=== PATIENT | male | born 1985 | race Caucasian/White ===

== ENCOUNTER → 2019-04-20 | Outpatient (REF) | payer BC ==
[2019-04-20 13:15] LABS: BASO # 0.1 10^3/uL (0.0-0.2); EOS # 0.5 10^3/uL (0.0-0.5); EOS % 5.5 % (0.0-3.0); HEMOGLOBIN 14.1 g/dl (13.5-17.5); LYMPH # 2.7 10^3/uL (1.5-5.0); LYMPH % 32.7 % (24.0-44.0); MEAN CORPUSCULAR HEMOGLOBIN 30.1 pg (27.0-33.0); MEAN CORPUSCULAR HGB CONC 33.6 g/dl (32.0-36.5); MEAN CORPUSCULAR VOLUME 89.7 fl (80.0-96.0); MONO # 0.7 10^3/uL (0.0-0.8); MONO % 8.8 % (0.0-5.0); NEUTROPHILS # 4.3 10^3/uL (1.5-8.5); NEUTROPHILS % 51.8 % (36.0-66.0); PLATELET COUNT, AUTOMATED 275 10^3/uL (150-450); RED BLOOD COUNT 4.68 10^6/uL (4.30-6.10); WHITE BLOOD COUNT 8.2 10^3/uL (4.0-10.0)
[2019-04-20 13:36] LABS: ALBUMIN 4.2 GM/DL (3.2-5.2); ALT/SGPT 53 U/L (12-78); BILIRUBIN,TOTAL 0.4 MG/DL (0.2-1.0); BLOOD UREA NITROGEN 19 MG/DL (7-18); CALCIUM LEVEL 9.8 MG/DL (8.5-10.1); CARBON DIOXIDE LEVEL 28 MEQ/L (21-32); CHLORIDE LEVEL 107 MEQ/L (98-107); CHOLESTEROL LEVEL 172 MG/DL (<200); CREATININE FOR GFR 0.87 MG/DL (0.70-1.30); FREE T4 1.27 NG/DL (0.76-1.46); GLOMERULAR FILTRATION RATE > 60.0 (>60); GLUCOSE, FASTING 86 MG/DL (70-100); HDL CHOLESTEROL 43 MG/DL (>40); LDL CHOLESTEROL 107 MG/DL (<100); NON-HDL-C 129 MG/DL; POTASSIUM SERUM 3.9 MEQ/L (3.5-5.1); SODIUM LEVEL 139 MEQ/L (136-145); TOTAL 25(OH) VITAMIN D 17.7 NG/ML (30.0-100.0); TOTAL PROTEIN 7.3 GM/DL (6.4-8.2); TRIGLYCERIDES LEVEL 109 MG/DL (<150)
== END ==
LOC: M LAB REF 12:10
PROVIDERS: ATTEND Physician Assistant
DX: Z68.42 Body mass index [BMI] 45.0-49.9, adult (principal); E66.01 Morbid (severe) obesity due to excess calories; J30.9 Allergic rhinitis, unspecified; E78.5 Hyperlipidemia, unspecified; F41.8 Other specified anxiety disorders

== ENCOUNTER → 2019-07-21 | Outpatient (CLI) | payer BC ==
--- NOTE | 2019-07-22 00:47 | REP ---
MRI OF THE LEFT ANKLE: TECHNIQUE: Sagittal proton density, STIR, axial proton density fat-sat, T1, coronal proton density, STIR. The Achilles, anterior tibial, posterior tibial, flexor hallucis longus, flexor digitorum longus, and peroneal tendons are all intact without significant tenosynovitis. The anterior and posterior talofibular, calcaneofibular, and deltoid ligaments are intact. Plantar fascia demonstrates no abnormal signal. Plantar tendon is intact. There is collapse of the navicular bone with diffuse marrow edema. Extensive cystic changes are seen in the lateral margin of the navicular bone. I suspect this represents osteonecrosis. There are mild arthritic changes of the adjacent intertarsal joints with areas of mild subchondral marrow edema. No other abnormal osseous signal is seen. There is a mild amount of scattered joint fluid. IMPRESSION: Moderate collapse of the navicular bone, with mild dorsal displacement with respect to the talus. Diffuse marrow edema. Extensive cystic changes in the lateral aspect of the navicular. 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 There are mild arthritic changes of the adjacent intertarsal joints with mild subchondral marrow edema. No tendon or ligament tear. Electronically Signed by Reno Shields MD 07/23/2019 09:19 A
--- NOTE | 2019-07-23 07:36 | REP ---
Clinical: Acquired clubfoot. Technique: Axial noncontrast images through the ankle with coronal and sagittal re-formations. Findings: The lateral third of the navicular bone demonstrates small central cystic changes along with surrounding elements of sclerosis and small cortical breaks suggesting element of chronic osteonecrosis. There is mild associated surrounding swelling and infiltration as well as mild associated joint space narrowing suggesting subsequent arthritic changes. Axial images demonstrate the AP talocalcaneal angle to be approximately 21 degrees. Remainder of the examination appears relatively normal. Impression: 1. findings suggesting osteonecrosis along the lateral third of the navicular bone with subsequent small fracture line and surrounding inflammatory change as well as mild chronic associated arthritic change. 2. The AP talocalcaneal angle measures approximately 21 degrees. Electronically Signed by Ken Blancas MD 07/23/2019 07:28 A
--- NOTE | 2019-07-23 08:28 | REP ---
Clinical: Acquired clubfoot. Left foot pain. Technique: Axial noncontrast images through the left foot with coronal and sagittal re-formations. Findings: The lateral third of the navicular bone demonstrates small central cystic changes along with surrounding sclerosis and small cortical breaks suggesting osteonecrosis and possible subsequent fracture. The associated navicular joint spaces demonstrate minimal degenerative narrowing. The remainder of the osseous structures and soft tissues of the foot appear essentially normal and age-appropriate. No further osteoarthritic degenerative changes are appreciated. No evidence for acute injury. Axial images demonstrate the AP talocalcaneal angle to be approximately 21 degrees. Impression: 1. Findings suggesting osteonecrosis along the lateral third of the navicular bone with subsequent small fracture and mild adjacent periarticular arthritic changes 2. The AP talocalcaneal angle measures approximately 21 degrees. Electronically Signed by Ken Blancas MD 07/23/2019 08:19 A
== END ==
LOC: M RAD 14:01
PROVIDERS: ATTEND Orthopaedic Surgery
DX: M19.072 Primary osteoarthritis, left ankle and foot (principal); M21.542 Acquired clubfoot, left foot; M25.472 Effusion, left ankle

== ENCOUNTER → 2019-12-03 | Outpatient (REF) | payer BC ==
[2019-12-03 16:50] LABS: BASO # 0.1 10^3/uL (0.0-0.2); BASO % 0.9 % (0.0-1.0); EOS # 0.3 10^3/uL (0.0-0.5); EOS % 3.8 % (0.0-3.0); HEMATOCRIT 43.7 % (42.0-52.0); HEMOGLOBIN 14.1 g/dl (13.5-17.5); LYMPH # 2.1 10^3/uL (1.5-5.0); LYMPH % 32.5 % (24.0-44.0); MEAN CORPUSCULAR HEMOGLOBIN 28.7 pg (27.0-33.0); MEAN CORPUSCULAR HGB CONC 32.3 g/dl (32.0-36.5); MEAN CORPUSCULAR VOLUME 88.8 fl (80.0-96.0); MONO # 0.6 10^3/uL (0.0-0.8); MONO % 8.7 % (0.0-5.0); NEUTROPHILS # 3.5 10^3/uL (1.5-8.5); NEUTROPHILS % 53.9 % (36.0-66.0); PLATELET COUNT, AUTOMATED 264 10^3/uL (150-450); RED BLOOD COUNT 4.92 10^6/uL (4.30-6.10); WHITE BLOOD COUNT 6.5 10^3/uL (4.0-10.0)
[2019-12-03 17:16] LABS: ALBUMIN 4.1 GM/DL (3.2-5.2); ALT/SGPT 36 U/L (12-78); BILIRUBIN,TOTAL 0.5 MG/DL (0.2-1.0); BLOOD UREA NITROGEN 16 MG/DL (7-18); CALCIUM LEVEL 9.3 MG/DL (8.5-10.1); CARBON DIOXIDE LEVEL 25 MEQ/L (21-32); CHLORIDE LEVEL 107 MEQ/L (98-107); CREATININE FOR GFR 1.02 MG/DL (0.70-1.30); GLOMERULAR FILTRATION RATE > 60.0 (>60); GLUCOSE, FASTING 84 MG/DL (70-100); POTASSIUM SERUM 4.5 MEQ/L (3.5-5.1); SODIUM LEVEL 137 MEQ/L (136-145); TOTAL PROTEIN 7.3 GM/DL (6.4-8.2)
== END ==
LOC: M LAB REF 16:20
PROVIDERS: ATTEND Physician Assistant
DX: R03.0 Elevated blood-pressure reading, without diagnosis of hypertension (principal)

== ENCOUNTER 2020-10-17 09:29 | Emergency (ER) | payer BC ==
[~2020-10-17] VITALS: Ht 182.9 cm; Wt 149.4 kg
[2020-10-17] MEDS ORDERED: LISI-898 (09:53)
[2020-10-17] MEDS ORDERED: PARO40TA2 (09:53)
[2020-10-17 11:04] LABS: BASO # 0.1 10^3/uL (0.0-0.2); BASO % 0.9 % (0.0-1.0); EOS # 0.1 10^3/uL (0.0-0.5); EOS % 1.8 % (0.0-3.0); HEMATOCRIT 44.5 % (42.0-52.0); HEMOGLOBIN 14.4 g/dl (13.5-17.5); LYMPH # 1.6 10^3/uL (1.5-5.0); LYMPH % 24.7 % (24.0-44.0); MEAN CORPUSCULAR HEMOGLOBIN 29.1 pg (27.0-33.0); MEAN CORPUSCULAR HGB CONC 32.4 g/dl (32.0-36.5); MEAN CORPUSCULAR VOLUME 90.1 fl (80.0-96.0); MONO # 0.9 10^3/uL (0.0-0.8); MONO % 13.3 % (2.0-8.0); NEUTROPHILS # 3.9 10^3/uL (1.5-8.5); PLATELET COUNT, AUTOMATED 228 10^3/uL (150-450); RED BLOOD COUNT 4.94 10^6/uL (4.30-6.10); WHITE BLOOD COUNT 6.6 10^3/uL (4.0-10.0)
--- NOTE | 2020-10-17 11:16 | REP ---
INDICATION: CHEST PAIN. COMPARISON: No comparison study. TECHNIQUE: Portable upright AP chest radiograph. FINDINGS: The lungs are well inflated and free of infiltrate. Pleural angles are sharp. Heart size is normal. Pulmonary vasculature is not increased. EKG electrodes are seen. IMPRESSION: No active disease. <Electronically signed by Edgar Banks > 10/17/20 [id number]
[2020-10-17] MEDS ORDERED: METAL LOCK LOOP XX ONE (11:31)
[2020-10-17 11:35] LABS: ALBUMIN 3.8 GM/DL (3.2-5.2); ALT/SGPT 35 U/L (12-78); BILIRUBIN,DIRECT 0.1 MG/DL (0.0-0.2); BILIRUBIN,TOTAL 0.5 MG/DL (0.2-1.0); BLOOD UREA NITROGEN 14 MG/DL (7-18); CALCIUM LEVEL 9.1 MG/DL (8.5-10.1); CARBON DIOXIDE LEVEL 29 MEQ/L (21-32); CHLORIDE LEVEL 105 MEQ/L (98-107); CK-MB VALUE MASS < 1.0 NG/ML (<3.6); CPK CREATINE PHOSPHOKINASE 164 U/L (39-308); CREATININE FOR GFR 1.04 MG/DL (0.70-1.30); GLOMERULAR FILTRATION RATE > 60.0 (>60); GLUCOSE, FASTING 87 MG/DL (70-100); MB/CK RELATIVE INDEX 0.61 (< OR =4); POTASSIUM SERUM 3.7 MEQ/L (3.5-5.1); SODIUM LEVEL 138 MEQ/L (136-145); TOTAL PROTEIN 7.9 GM/DL (6.4-8.2); TROPONIN I < 0.02 NG/ML (< 0.10)
--- NOTE | 2020-10-17 14:19 | CR.PDOC ---
General Date of Consultation: Oct 17, 2020 Consultation REASON FOR CONSULTATION/CHIEF COMPLAINT: Monoclonal antibody infusion for COVID- 19 HISTORY OF PRESENT ILLNESS: 35-year-old male with morbid obesity with a BMI of 44.7, hypertension presented to the ED with 4 days history of nasal congestion sore throat cough and upper respiratory symptoms. He had a home Covid positive test 2 days ago. His and 1 son and his mom also positive for Covid. He has been feeling progressively more unwell tired and exhausted so came to the emergency room for evaluation. He denies any shortness of breath any chest pain. Denied any nausea vomiting diarrhea. Denied any fever or chills. Does continue to have upper respiratory symptoms with bothersome cough. He was not hypoxic and his vitals were stable. He was found meet the criteria for mono clonal antibody infusion and did not have any contraindications. Patient consented to get the monoclonal antibody. ALLERGIES: Please see below. HOME MEDICATIONS: Please see below. PAST MEDICAL HISTORY: Hypertension PAST SURGICAL HISTORY: Tonsillectomy and adenoidectomy as a child FAMILY HISTORY: Paternal grandmother with COPD Mother: Sleep apnea SOCIAL HISTORY: Does not smoke, social alcohol use REVIEW OF SYSTEMS: All 10 point review of systems are negative except those mentioned in HPI PHYSICAL EXAMINATION: VITAL SIGNS: Please see below. GENERAL APPEARANCE: Awake alert oriented x3 sitting up in bed in no acute distress HEENT: Normocephalic atraumatic moist mucous membranes anicteric eyes RESPIRATORY: Chest few diffuse crackles good air entry CARDIOVASCULAR: S1-S2 regular no rub murmur gallop ABDOMEN: Soft nontender bowel sounds present EXTREMITIES: No edema NEUROLOGICAL: No neuro deficits LABORATORY DATA: Please see below. ASSESSMENT/PLAN: 35-year-old male presented with COVID-19 infection and admitted for monoclonal antibody infusion COVID-19 infection Plan for monoclonal antibody infusion Hypertension Continue home med Vital Signs/I&O Vital Signs Date Time Temp Pulse Resp B/P (MAP) Pulse Ox O2 Delivery O2 Flow Rate FiO2 10/17/20 13:00 95.5 79 20 131/68 (89) 100 Room Air Laboratory Data Labs 24H Laboratory Tests 2 10/17/20 10:25: Immature Granulocyte % (Auto) 0.3, Neutrophils (%) (Auto) 59.0, Lymphocytes (%) (Auto) 24.7, Monocytes (%) (Auto) 13.3H, Eosinophils (%) (Auto) 1.8, Basophils (%) (Auto) 0.9, Neutrophils # (Auto) 3.9, Lymphocytes # (Auto) 1.6, Monocytes # (Auto) 0.9H, Eosinophils # (Auto) 0.1, Basophils # (Auto) 0.1, Nucleated Red Blood Cells % (auto) 0.0, Anion Gap 4L, Glomerular Filtration Rate > 60.0, Calcium Level 9.1, Total Bilirubin 0.5, Direct Bilirubin 0.1, Aspartate Amino Transf (AST/SGOT) 23, Alanine Aminotransferase (ALT/SGPT) 35, Alkaline Phosphatase 55, Total Creatine Kinase 164, Creatine Kinase MB < 1.0, Creatine Kinase MB Relative Index 0.61, Troponin I < 0.02, Total Protein 7.9, Albumin 3.8, Albumin/Globulin Ratio 0.9 10/17/20 10:54: Influenza A Immunofluorescence NEGATIVE, Influenza B Immunofluorescence NEGATIVE, SARS Antigen (LFIA) POSITIVEH CBC/BMP Laboratory Tests 10/17/20 10:25 Allergies Coded Allergies: No Known Allergies (Unverified , 10/17/20) Home Medications Miscellaneous Medications Lisinopril (Lisinopril) 5 Mg Tablet, (Reported) Paroxetine HCl (Paroxetine HCl) 40 Mg Tablet, (Reported) Macy Allen MD Oct 17, 2020 14:19
--- NOTE | 2020-10-17 17:56 | ECGEPIP ---
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
[2020-10-17 19:01] VITALS: BP 129/68
== END 2020-10-17 19:30 | disposition home or self-care (01) ==
LOC: M ED 09:29
DX: U07.1 COVID-19 (principal); I10 Essential (primary) hypertension; I34.1 Nonrheumatic mitral (valve) prolapse; Z79.899 Other long term (current) drug therapy

== ENCOUNTER 2020-10-17 19:56 | Outpatient (CLI) | payer BC ==
[~2020-10-17] VITALS: Ht 182.9 cm; Wt 157.3 kg
[~2020-10-17 19:56] MED LIST: ALBUTEROL 90 MCG/ACT 8GM HFA INHALER INH PRN; ALBUTEROL SULFATE 2.5 MG/0.5 ML INH NEB SOLN INH PRN; EPINEPHrine INJ 1 MG/ML 1ML AMP IM PRN; LISI-898; NS 1,000 ML IV SCH; PARO40TA2; diphenhydrAMINE 50MG/ML VIAL (J1200) IV PRN; methylPREDNISolone 125MG 2ML VIAL IV PRN
[2020-10-17] MEDS ORDERED: CASIRIVIMAB/IMDEVIMAB 1,200 MG in NS 250 ML IV ONE (20:00)
[2020-10-17 20:04] VITALS: BP 120/67
[2020-10-17 20:51] VITALS: BP 126/72
[2020-10-17 21:31] VITALS: BP 125/72
[2020-10-17 21:57] VITALS: BP 119/73
[2020-10-17 22:30] VITALS: BP 124/66
[2020-10-17 23:06] VITALS: BP 126/72
== END 2020-10-17 23:14 | disposition home or self-care (01) ==
LOC: M OPCLI4 19:56 → M ICU 19:56 → M OPCLI4 23:14
PROVIDERS: ATTEND Internal Medicine Nephrology
DX: U07.1 COVID-19 (principal)

== ENCOUNTER 2020-10-19 10:11 | Emergency (ER) | payer BC ==
[~2020-10-19 10:11] MED LIST changes: -ALBUTEROL 90 MCG/ACT 8GM HFA INHALER INH PRN; -ALBUTEROL SULFATE 2.5 MG/0.5 ML INH NEB SOLN INH PRN; -EPINEPHrine INJ 1 MG/ML 1ML AMP IM PRN; -NS 1,000 ML IV SCH; -diphenhydrAMINE 50MG/ML VIAL (J1200) IV PRN; -methylPREDNISolone 125MG 2ML VIAL IV PRN
[2020-10-19] MEDS ORDERED: KETOROLAC 30 MG/ML 1ML VIAL IV ONE (10:20)
[2020-10-19] MEDS ORDERED: NS 1,000 ML IV ONE ×2 (10:20→10:25)
[2020-10-19 13:00] VITALS: BP 118/57
--- NOTE | 2020-10-19 18:58 | ECGEPIP ---
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
== END 2020-10-19 13:13 | disposition home or self-care (01) ==
LOC: EDBD 10:11 → M ED 10:11
DX: U07.1 COVID-19 (principal); R55 Syncope and collapse; R06.02 Shortness of breath; Z92.22 Personal history of monoclonal drug therapy; I10 Essential (primary) hypertension; E66.9 Obesity, unspecified; Z79.899 Other long term (current) drug therapy
CPT/HCPCS: 36415; 80047; 93005; 96361; 96374; 99284; J1885